=== PATIENT | male | born 1985 | race Caucasian/White ===

== ENCOUNTER 2017-05-31 07:31 | Emergency (ER) | payer OTHER ==
[~2017-05-31] VITALS: Ht 182.9 cm; Wt 108.9 kg
[2017-05-31 07:38] VITALS: BP 146/96
--- NOTE | 2017-05-31 07:50 | NUR ---
PATIENT TO BED 5.
--- NOTE | 2017-05-31 07:51 | NUR ---
32M BIB SELF C/O LEFT ANKLE BUG BITE X 3 DAYS; PT STATES [place] AND WAS BIT BY SOMETHING; ERYTHEMA NOTED TO LEFT ANKLE; NO ACTIVE BLEEDING NOTED TO SITES AT THIS TIME; PT STATES ERYTHEMA "SPREADING"; PT AA&OX4, PERRLA, BL LUNG SOUNDS CLEAR, RR EVEN/UNLABORED, SKIN IS WARM/DRY TO TOUCH; PT STATES NO PAIN, N/V/D AT THIS TIME, BUT C/O ITCHING TO SITES; PT RESTING IN BED WITH HOB ELEVATED AND IN LOWEST POSITION; POSITIONED FOR COMFORT; ER MD MADE AWARE OF STATUS. WILL CONTINUE TO MONITOR.
--- NOTE | 2017-05-31 08:05 | NUR ---
ER MD DR. MAYES EVALUATING PT AT BEDSIDE.
--- NOTE | 2017-05-31 08:20 | NUR ---
Patient discharged with v/s stable. Written and verbal after care instructions given and explained. Patient verbalized understanding. Ambulatory with steady gait. All questions addressed prior to discharge. Advised to follow up with PMD.
[2017-05-31 08:21] VITALS: BP 148/88
== END 2017-05-31 08:20 | disposition home or self-care (01) ==
LOC: MED 07:31
DX: S80.862A Insect bite (nonvenomous), left lower leg, initial encounter (principal); W57.XXXA Bitten or stung by nonvenomous insect and other nonvenomous arthropods, initial encounter; Y93.89 Activity, other specified; Y92.89 Other specified places as the place of occurrence of the external cause; Y99.8 Other external cause status
CPT/HCPCS: 99283

== ENCOUNTER 2018-03-27 11:57 | Outpatient (CLI) | payer OTHER | END 2018-03-27 20:21 | disposition home or self-care (01) | LOC: MRD 11:57 | DX: J33.8 Other polyp of sinus (principal); R43.0 Anosmia | CPT/HCPCS: 70486 ==

== ENCOUNTER 2018-12-11 19:30 | Emergency (ER) | payer OTHER ==
[~2018-12-11] VITALS: Ht 182.9 cm; Wt 108.9 kg
[2018-12-11 19:36] VITALS: BP 159/80
--- NOTE | 2018-12-11 19:39 | NUR ---
TO LOBBY AMBULATORY, TATY SCHULTZ NOTED
--- NOTE | 2018-12-11 20:27 | NUR ---
SORETHROAT,COUGH, H/A, NAUSEA SINCE SATURDAY. STATES HE HAS A PRODUCTIVE COUGH. DENIES FEVER, CP, SOB, BODY ACHES OR VOMIING AND DIARRHEA. POSITIONED FOR COMFORT. BED IN LOW LOCKED POSITION.
--- NOTE | 2018-12-11 20:29 | NUR ---
DR VAZQUEZ AT BEDSIDE.
[2018-12-11] MEDS ORDERED: KETOROLAC 30 MG/ML VIAL IM ONE (20:35)
[2018-12-11] MEDS ORDERED: DEXAMETHASONE 10 MG/ML VIAL PO ONE (20:35)
--- NOTE | 2018-12-11 21:20 | NUR ---
patient stated improvement in throat pain but still has a WAGONER. Dr. Cullen informed.
[2018-12-11 21:50] VITALS: BP 141/78
--- NOTE | 2018-12-11 21:50 | NUR ---
Patient discharged with v/s stable. Written and verbal after care instructions given and explained. Patient alert, oriented and verbalized understanding of instructions. Ambulatory with steady gait. All questions addressed prior to discharge. ID band removed. Patient advised to follow up with PMD. Rx of GUAIATUSSIN, ZITHROMAX, AND NAPROSYN given. Patient educated on indication of medication including possible reaction and side effects. Opportunity to ask questions provided and answered.
== END 2018-12-11 21:50 | disposition home or self-care (01) ==
LOC: MED 19:30
DX: J04.0 Acute laryngitis (principal); R10.9 Unspecified abdominal pain; R42 Dizziness and giddiness; Z90.49 Acquired absence of other specified parts of digestive tract
CPT/HCPCS: 87081; 87804; 96372; 99283; J1100; J1885

== ENCOUNTER 2019-08-22 07:59 | Emergency (ER) | payer OTHER ==
[~2019-08-22] VITALS: Ht 182.9 cm; Wt 113.4 kg
[2019-08-22 08:00] VITALS: BP 171/115
--- NOTE | 2019-08-22 08:12 | NUR ---
Patient ambulated to bed 9. RN evaluating patient at bedside.
--- NOTE | 2019-08-22 08:12 | NUR ---
Gunnar ren in [facility] - 08/22/19 at 0819 by [email or web address] PATIENT AMBULATED TO BED 9.
--- NOTE | 2019-08-22 08:15 | NUR ---
34 Y/O M C/O CLOGGED EARS, BROWN DISCHARGE FROM NOSE. PATIENT WENT TO URGENT CARE X2 DAYS AGO. PATIENT STATES HIS EARS WERE "CLEANED OUT BY LAVAGE WITH WAX REMOVAL". HOWEVER, HE STILL CAN'T HEAR VERY WELL OUT OF BOTH EARS. PATIENT HAS BEEN NAUSEA AND RINGING IN BOTH EARS. HX: SEVERE SEASONAL ALLERGIES, TAKES INJECT HISTAMINES TONSILLECTOMY
--- NOTE | 2019-08-22 08:21 | NUR ---
Dr. Sosa is evaluating the patient at bedside.
[2019-08-22 08:36] VITALS: BP 148/96
--- NOTE | 2019-08-22 08:36 | NUR ---
Patient discharged with v/s stable. Written and verbal after care instructions given and explained. Patient alert, oriented and verbalized understanding of instructions. Ambulatory with steady gait. All questions addressed prior to discharge. ID band removed. Patient advised to follow up with PMD. Rx of PREDNISONE, SUDAFED given. Patient educated on indication of medication including possible reaction and side effects. Opportunity to ask questions provided and answered.
== END 2019-08-22 08:36 | disposition home or self-care (01) ==
LOC: MED 07:59
DX: J30.9 Allergic rhinitis, unspecified (principal); R03.0 Elevated blood-pressure reading, without diagnosis of hypertension
CPT/HCPCS: 99283